=== PATIENT | male | born 1950 | race Caucasian/White ===

== ENCOUNTER 2021-07-12 16:03 | Emergency (ER) | payer OTHER, SELFPAY ==
[2021-07-12 16:05] VITALS: BP 125/81; PULSE 71; RESP 16; TEMP 36.3; O2SAT 93; BMI 31.7
--- NOTE | 2021-07-12 16:27 | EDS_ITS ---
HPI History of Present Illness Chief Complaint: General Illness Detail of Chief Complaint: Requesting replacement of his PEG tube Informant: patient Narrative Narrative: Patient presents to the emergency department stating that he had his PEG tube replaced today at the [facility] in [place]. Patient states that they had to cut the distal portion of the PEG tube and apply a adapter so that his feeding tube would fit the PEG tube. The PEG tube then easily apparently slid out once he got home. Patient denies any trauma to the area. He denies any other complaints. Patient has history of throat cancer. Patient has tracheostomy. Prior similar symptoms: Yes [facility] Medical History (Updated 07/12/21 @ 16:18 by Chanell Chirinos) Throat cancer Tracheostomy care Allergy/AdvReac Type Severity Reaction Status Date / Time No Known Allergies Allergy Verified 07/12/21 16:05 Social History Smoking Status: Former smoker ROS ROS ED ROS Narrative Requesting PEG tube replacement Constitutional Constitutional ED: Reports systems reviewed and no addt'l complaints, except as documented; Denies body ache(s), change in weight or chills Eyes Eyes: Denies acute decrease in peripheral vision, change in vision, double vision or loss of vision ENT ENT ED: Reports none; Denies ear pain, lip swelling, loss taste/smell, neck pain, otalgia or sore throat Cardiovascular Cardiovascular: Reports none; Denies abdominal pain, chest pain with activity, leg edema, lightheadedness, palpitations, rapid heart rate or syncope Respiratory/Chest Respiratory/Chest: Reports none; Denies change in mental status, dry cough, dyspnea, hemoptysis, shortness of breath at rest or shortness of breath with exertion Gastrointestinal Gastrointestinal: Reports none; Denies abdominal pain, change in stool character, diarrhea, hematemesis, hematochezia, melena, rectal bleeding or vomiting Genitourinary Genitourinary ED: Reports none; Denies abdominal discomfort, anuria, dysuria, genital pain or polyuria Musculoskeletal Musculoskeletal: Reports none; Denies arthralgias, back pain, difficulty walking, extremity pain, muscle weakness or myalgias Integumentary Reports none; Denies abscess or rash Neurologic Neurologic: Reports none; Denies abnormal gait, confusion, focal weakness, frequent falls, headache(s), loss of vision, numbness, paresthesias, radicular pain, vertigo or weakness Psychiatric Psychiatric: Reports systems reviewed and no addt'l complaints, except as documented and none; Denies behavioral changes, confusion, difficulty concentrating, hallucinations, suicidal ideation, tactile hallucinations or visual hallucinations Endocrine Endocrinology: Denies none, cold intolerance, excessive sweating, fatigue or heat intolerance Hematologic/Lymphatic Hematologic/Lymphatic: Reports none; Denies anemia, easy bleeding or easy bruising Allergic/Immunologic Allergic/Immunologic ED: Denies as per HPI, none, lip swelling, mouth swelling, throat swelling, tongue swelling or hives EXAM Physical Exam Const Vital Signs: 07/12/21 16:05 07/12/21 16:16 Temperature 97.3 F L Temperature Source Temporal Pulse Rate 71 Respiratory Rate 16 Respiratory Effort Normal Non-Labored Blood Pressure 125/81 H Blood Pressure Mean 95 Pulse Ox 93 Oxygen Delivery Method Room Air Positive well nourished and well developed General Appearance ED: well developed and NAD HEENT Reports TM's clear and moist mucous membranes normocephalic and atraumatic; Negative for trauma or tenderness Tympanic Membrane ED: Yes TM's clear Eyes PERRL and EOMs intact bilaterally General Eye ED: Negative for pale conjunctiva or scleral icterus Neck no lymphadenopathy, supple and no JVD General: Negative for tenderness Chest Wall inspection of chest normal and palpation of chest normal Chest: Negative for tenderness Resp normal respiratory effort and clear to auscultation bilaterally Effort and Inspection: Negative for respiratory distress or pain with movement Auscultation: Negative for rhonchi, wheezes or diminished lung sounds Cardio regular rate, regular rhythm, S1 normal heart sound, S2 normal heart sound and no murmurs Peripheral Pulses: pulses 2+ throughout GI normal to inspection, nondistended, normoactive bowel sounds, soft to palpation, non-tender, non-distended and no masses GI Narrative: Patient has the old PEG tube in the fistulous tract however it easily slides out. There is no balloon noted and when I attempted to place water into the old balloon port the balloon did not inflate. We used our own 28 Urdu balloon tip PEG tube and was easily inserted. I then inserted the old port portion into the new port which is slightly smaller and then we taped it in place so that he can still utilize it. [facility] be [facility] with the appropriate distal piece. Back/Spine no CVA tenderness and no thoracic nor lumbar tenderness Extremity normal to inspection General Extremety ED: Negative for edema General Extremity: Negative for edema Neuro oriented x3, CN's II-XII intact bilaterally, no sensory deficits noted and gait normal Sensorium / Orientation: awake, alert, oriented to person, oriented to place and oriented to time Motor Exam: strength 5/5 throughout and strength abnormal Psych mental status grossly normal Skin no rashes or lesions noted and no wounds MDM MDM MDM Narrative Medical decision making narrative: After PEG tube was replaced I did obtain a KUB with Gastrografin study to document placement. We did have return of gastric content after placement. Radiography Diagnostic Testing: Clinical Impression(s) from Imaging Studies KUB X-Ray 07/12/21 16:40 IMPRESSION: PEG tube in the body of stomach. There is no leakage of contrast or evidence of reflux. Electronically Signed: Evan Ortega DO at 17:19 EST Reading Location ID and State: [address] [place] [address] Tel [phone], Service support , 1 view KUB obtained interpreted by myself as PEG tube within the stomach with no evidence of extravasation. Radiology in agreement. Discharge Plan Triage Chief Complaint: General Illness ED Provider: Francisco Alcazar Dx/Rx/DC Orders Clinical Impression: S/P percutaneous endoscopic gastrostomy (PEG) tube placement Instructions: ED Feeding Tube Insertion [facility] [[facility] Provider[facility] - Activity Restrictions/Additional Instructions: [facility] as needed Disposition Disposition: Home, Self Care
--- NOTE | 2021-07-12 16:40 | RAD_ITS ---
STUDY: X-RAY - ABDOMEN/PELVIS REASON FOR EXAM: Male, 71 years old. PEG tube placement. TECHNIQUE: Single AP view of the abdomen / pelvis was performed following the injection of GASTROGRAFIN through the indwelling PEG tube.. COMPARISON: 03/11/2012. FINDINGS: There is a PEG tube with its tip in the body of the stomach. Contrast is seen within the body of the stomach and first portion of the duodenum. There is no leakage of contrast. There is no evidence of reflux. There is an unremarkable bowel gas pattern. Oral contrast is seen throughout the colon There is no demonstrated free abdominal air. The visualized liver, spleen and kidneys are grossly normal in size and morphology. Normal soft tissue structures. Normal visualized osseous structures. RAD/Abdomen Single View (Portable) IMPRESSION: PEG tube in the body of stomach. There is no leakage of contrast or evidence of reflux. Electronically Signed: Evan Ortega DO at 17:19 EST ,
== END 2021-07-12 23:59 | disposition home or self-care (01) ==
PROVIDERS: Emergency Provider Emergency Medicine; Visit Provider Emergency Medicine
DX: Z43.1 Encounter for attention to gastrostomy (principal); Z93.0 Tracheostomy status; Z87.891 Personal history of nicotine dependence; Z85.818 Personal history of malignant neoplasm of other sites of lip, oral cavity, and pharynx
CPT/HCPCS: 74018; 99282

== ENCOUNTER 2022-09-17 15:33 | Emergency (ER) | payer OTHER, SELFPAY ==
[2022-09-17] VITALS (9 sets, daily range): BP systolic 132–159; BP diastolic 74–87; PULSE 72–110; RESP 15–23; TEMP 36.8–37.1; O2SAT 93–100; BMI 30.7
--- NOTE | 2022-09-17 15:54 | EDS_ITS ---
HPI HPI - GI History of Present Illness Chief Complaint: Shortness of Breath Narrative Narrative: 72-year-old male presenting with initial complaint of abdominal pain. He states it was an acute onset abdominal pain and he points to his epigastrium and then moved his head all over his stomach. Patient does not speak well but is able to tell me that his stomach is hurting for 5 hours. He states he started hurting after tube feed. He indicates he has not had a fever, he has nausea and vomiting. No diarrhea. He states he has been having bowel movements. Patient does have history of PEG tube placement distantly. He has not had any problems with that. Patient does state that he is short of breath but denies chest pain. I did discuss this with him because the triage note states he is having chest pain. He indicates that he is not having chest pain. But he does point to his epigastrium and all over his abdomen. He does admit to being short of breath however. He does sound like he is wheezing audibly to standing next to him. 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 He is not on any chemotherapy currently. [facility] Medical History Throat cancer Tracheostomy care Allergy/AdvReac Type Severity Reaction Status Date / Time No Known Allergies Allergy Verified 07/12/21 16:05 Social History Smoking Status: Former smoker ROS ROS ED Constitutional Constitutional ED: Denies chills or fever(s) ENT ENT ED: Denies rhinorrhea or sore throat Cardiovascular Cardiovascular: Denies chest pain Respiratory/Chest Respiratory/Chest: Reports cough and dyspnea Gastrointestinal Gastrointestinal: Reports abdominal pain, nausea and vomiting Genitourinary Genitourinary ED: Denies dysuria or hematuria Musculoskeletal Musculoskeletal: Denies arthralgias Integumentary Denies abscess or Abrasions Neurologic Neurologic: Denies headache(s) or paresthesias Psychiatric Psychiatric: Denies anxiety or depression EXAM Physical Exam Const Vital Signs: 09/17/22 15:35 09/17/22 15:39 09/17/22 16:35 Temperature 98.3 F 98.3 F Temperature Source Oral Oral Pulse Rate 81 75 110 H Respiratory Rate 23 H 15 20 H Respiratory Pattern Blood Pressure 159/81 H 159/81 H 148/87 H Blood Pressure Mean 107 107 107 Pulse Ox 94 95 100 Oxygen Delivery Method Room Air Room Air Room Air Oxygen Flow Rate (L/min) 09/17/22 17:10 09/17/22 16:21 09/17/22 18:11 Temperature Temperature Source Pulse Rate 107 H 104 H 100 Respiratory Rate 16 20 H 20 H Respiratory Pattern Normal Blood Pressure Blood Pressure Mean Pulse Ox 97 96 Oxygen Delivery Method Room Air Oxygen Flow Rate (L/min) 6 09/17/22 21:34 09/17/22 21:34 Temperature 98.8 F Temperature Source Temporal Pulse Rate 75 Respiratory Rate 15 Respiratory Pattern Blood Pressure 132/74 H Blood Pressure Mean 93 Pulse Ox 93 95 Oxygen Delivery Method Oxygen Flow Rate (L/min) Positive well nourished General Appearance ED: NAD HEENT Reports moist mucous membranes normocephalic Eyes PERRL and EOMs intact bilaterally General Eye ED: Negative for pale conjunctiva or scleral icterus Resp normal respiratory effort Auscultation: Negative for rales, rhonchi or wheezes Cardio regular rate and regular rhythm Neuro CN's II-XII intact bilaterally Psych mental status grossly normal Skin no wounds MDM MDM MDM Narrative Medical decision making narrative: Presented with epigastric pain also complaining of dyspnea. He does deny chest pain although he is pointing to his epigastrium. Differential includes but is not limited to ACS, PE, aortic dissection, pneumonia, Boerhaave's, pneumothorax, muscle strain, costochondritis, GERD, gastritis, peptic ulcer disease, acute cholecystitis, acute cholelithiasis, appendicitis, diverticulitis, pancreatitis, small bowel obstruction, perforated bowel, viral etiology, food poisoning. Jurgen giordano given IV fluids, morphine, Zofran. He was a little wheezy on exam he is also given breathing treatments and Solu-Medrol. Chest x-ray was obtained and on my interpretation shows bilateral pneumonia. High-sensitivity troponin 12. EKG on my interpretation shows sinus tachycardia at 101 bpm without sign of ischemic change. Right bundle branch block pattern noted. CBC shows no leukocytosis his white blood count was 10.3. Hemoglobin stable at 12.8. Platelets low at 134 and bili comparison to this is from 2011. Creatinine slightly elevated at 1.32. Again the only comparison to this is 2011 when it was just slightly lower than this. Patient was unable to tell me if he has had history of gallbladder surgery. Does not have a jorge Anderson sign but he does have epigastric pain. His LFTs are abnormal today and his bilirubin is 1.60, AST 115, ALT 115, alkaline phosphatase 138, lipase 525. CT of the abdomen pelvis was obtained and shows a 5.7 mm common bile duct stone with a dilated common bile duct at 13 mm. I did follow this with an ultrasound which was pericholecystic fluid but no jorge Anderson sign on exam. It does show that the common bile duct is 12.8 mm on this image. The CT does also identify bilateral pneumonia. Patient covered with broad-spectrum antibiotics and given vancomycin and Zosyn which would cover for pneumonia, which I suspect is aspiration most likely. Would also cover for his gallbladder. Discussed with Dr. Reagan who is on-call for general surgery. He did try to arrange surgery by talking Dr. Benavidez, anesthesia, ENT due to the patient's history of tracheostomy and ultimately was deemed at the procedure would be too difficult at this facility and he would need a tertiary facility with more backup. I did discuss this with [facility] and spoke with a Dr. Toledo who stated that he would accept the patient on the waiting list and it would be 3 to 4 days. I then spoke with a Dr. Florence at [facility]. He excepted the transfer ER to ER. I did call the patient's to obtain telephone consent. This was confirmed with 2 other nurses. She is the POA. Patient remained medically stable. He is pending transfer. He will be signed out to incoming ED physician for monitoring until transfer. Impression: 1. Bilateral pneumonia 2. Choledocholithiasis 3. Cholecystitis Lab Data Attestation: I reviewed the patient's lab results. Labs: Laboratory Results - last 24 hr 09/17/22 09/17/22 09/17/22 16:13 16:13 17:55 WBC 10.3 RBC 3.84 L Hgb 12.8 L Hct 36.4 L MCV 94.8 H MCH 33.3 H MCHC 35.2 RDW Std Deviation 45.2 H RDW Coeff of Edwin 13.1 Plt Count 134 L MPV 9.5 Immature Gran % (Auto) 0.400 Neut % (Auto) 88.5 H Lymph % (Auto) 6.3 L [place] % (Auto) 4.1 Eos % (Auto) 0.4 Baso % (Auto) 0.3 Absolute Neuts (auto) 9.2 H Absolute Lymphs (auto) 0.65 L Nucleated RBC % 0 Sodium 133 L Potassium 3.8 Chloride 97 L Carbon Dioxide 30.0 Anion Gap 6 BUN 26 H Creatinine 1.32 H Estim Creat Clear Calc 50.59 Est GFR (MDRD) Af Amer 68 Est GFR (MDRD) Non-Af 57 L BUN/Creatinine Ratio 19.7 Glucose 115 H Calcium 9.6 Total Bilirubin 1.60 H AST 115 H ALT 115 H Alkaline Phosphatase 138 H Troponin I High Sens 12 Total Protein 8.3 H Albumin 3.6 Globulin 4.7 H Albumin/Globulin Ratio 0.8 L Lipase 525 H Ethyl Alcohol < 3.0 Radiography Diagnostic Testing: Clinical Impression(s) from Imaging Studies Abdomen/Pelvis CT 09/17/22 17:29 IMPRESSION: (NOT LISTED IN ORDER OF SIGNIFICANCE) There is dilation of the common bile duct. A 5.7mm common bile duct stone is seen. The CBD diameter is 13 mm. Bilateral pneumonia. Other findings as above. Electronically Signed: Juan Ramon Mascorro MD at 18:36 EDT , Gallbladder Ultrasound 09/17/22 18:15 IMPRESSION: Dilated CBD. There is biliary sludge dependent within the gallbladder vs small gallstones. There is pericholecystic fluid. Electronically Signed: Juan Ramon Mascorro MD at 19:29 EDT , Chest X-Ray 09/17/22 19:10 IMPRESSION: Bilateral pneumonia. Electronically Signed: Juan Ramon Mascorro MD at 19:26 EDT , Discharge Plan Triage Chief Complaint: Shortness of Breath ED Provider: Bear Horner Dx/Rx/DC Orders [facility] [facility] [[facility] Provider] -
[2022-09-17 16:20] LABS: Absolute Lymphocyte Count 0.65 X10^3/uL (0.83-4.51); Absolute Neutrophil Count 9.2 X10^3/uL (2.0-7.7); Basophil# 0.03 X10^3/uL; Basophil% 0.3 % (0-1); Eosinophil# 0.04 X10^3/uL; Eosinophils% 0.4 % (0-5); Hematocrit 36.4 % (40-54); Hemoglobin 12.8 g/dL (13.0-16.5); Lymphocyte # 0.65 X10^3/ul (0.83-4.51); Lymphocyte % 6.3 % (19-41); Mean Corp Hgb Conc 35.2 g/dL (32-36); Mean Corpuscular Hgb 33.3 pg (27.0-32.0); Mean Corpuscular Volume 94.8 fL (80-94); Mean Platelet Vol. 9.5 fl (6.2-12.0); Monocyte# 0.42 X10^3/uL; Monocyte% 4.1 % (0-10); NRBC Flagged by Analyzer 0 % (0-5); Neutrophil # 9.16 X10^3/uL (2.7-7.7); Neutrophil % 88.5 % (47-70); Platelet Count 134 K/mm3 (150-450); RBC Distribution Width CV 13.1 % (11.6-14.6); RBC Distribution Width SD 45.2 fl (35.1-43.9); Red Blood Count 3.84 M/mm3 (4.6-6.2); White Blood Count 10.3 K/mm3 (4.4-11.0)
[2022-09-17] MEDS: Albuterol 2.5 MG/3 ML VIAL.NEB. INHALATION (16:21)
[2022-09-17] MEDS: Ipratropium/Albuterol Sulfate 3 ML AMPUL.NEB INHALATION (16:22)
[2022-09-17] MEDS: MethylPREDNISolone 125 MG/2 ML Vial IV (16:33)
[2022-09-17] MEDS: Morphine 4 MG/ML Syringe IV (16:33)
[2022-09-17] MEDS: Ondansetron 4 MG/2 ML Vial IV (16:33)
[2022-09-17 16:39] LABS: ALB/GLOB Ratio 0.8 RATIO (0.9-2.4); AST(SGOT) 115 U/L (15-37); Alanine Aminotransfer ALT/SGPT 115 U/L (16-61); Albumin, Serum 3.6 g/dL (3.2-5.0); Alkaline Phosphatase 138 U/L (45-117); Anion Gap 6 (5-15); BUN 26 mg/dL (7-18); BUN/Creat Ratio 19.7 RATIO (10-20); Calcium,Total 9.6 mg/dL (8.5-10.1); Chloride 97 mmol/L (98-107); Creatinine, Serum 1.32 mg/dL (0.70-1.30); EST Glomerular Filtration Rate 57 mL/min (>60); Est Glom Filt Rate - Afr Amer 68 mL/min (>60); Estimated Creatinine Clearance 50.59 ml/min; Globulin 4.7 g/dL (2.2-4.2); Glucose 115 mg/dL (74-106); Lipase 525 U/L (73-393); Potassium 3.8 mmol/L (3.5-5.1); Protein, Total 8.3 g/dL (6.4-8.2); Sodium Level 133 mmol/L (136-145); Troponin-I HS 12 pg/mL (3.0-78.0)
--- NOTE | 2022-09-17 17:29 | CT_ITS ---
STUDY: CT Abdomen And Pelvis W/ Contrast Injection 09/17/2022 6:33 PM REASON FOR EXAM: Male, 72 years old. Abdominal pain abdominal pain Individualized dose optimization techniques were used for this CT. COMPARISON: None. TECHNIQUE: CT Abdomen And Pelvis W/ Contrast Injection IV 100mL [id number] FINDINGS: There are atherosclerotic calcifications of visualized coronary arteries. There is bilateral pneumonia. There is intrahepatic ductal dilation. Distended gallbladder. There is dilation of the common bile duct. A 5.7mm common bile duct stone is seen. The CBD diameter is 13 mm. Normal spleen. Normal pancreas. Normal bilateral adrenal glands. No acute findings of the right kidney. No acute findings of the left kidney. There is a PEG tube in place. Normal small intestine. Stool throughout the colon. There is non-visualization of the appendix. There are calcifications of the abdominal aorta. This is consistent for atherosclerotic disease. There is NO abdominal aortic aneurysm. Vascular workup can be obtained based on clinical correlation. Normal inferior vena cava. Subcentimeter mesenteric lymph nodes. Normal urinary bladder. Normal abdominal wall. There are diffuse degenerative changes of the visualized lumbar spine. Degenerative findings of the hips. There is bilateral neural foraminal stenosis at L4-5 and L5-S1. CT/Abdomen/Pelvis W IV Cont ONLY IMPRESSION: (NOT LISTED IN ORDER OF SIGNIFICANCE) There is dilation of the common bile duct. A 5.7mm common bile duct stone is seen. The CBD diameter is 13 mm. Bilateral pneumonia. Other findings as above. Electronically Signed: Juan Ramon Mascorro MD at 18:36 EDT ,
--- NOTE | 2022-09-17 18:15 | US_ITS ---
STUDY: ABDOMINAL ULTRASOUND - RIGHT UPPER QUADRANT REASON FOR VISIT: Male, 72 years old. ABDOMEN PAIN abdominal pain TECHNIQUE: Ultrasound evaluation of the right upper quadrant was performed with real-time and static maza-scale imaging. TECHNICAL QUALITY: Adequate. COMPARISON: ct of the same day FINDINGS: Liver: There is a heterogeneous echogenicity of the liver. The bile ducts are within normal limits. There is hepatic color flow. The direction of portal flow is hepatopetal. There is no demonstrated mass lesion. Gallbladder: There is a markedly distended gallbladder. The gallbladder wall measures 2.1 mm. There is a negative sonographic Anderson''s sign. There is pericholecystic fluid. There is biliary sludge dependent within the gallbladder vs small gallstones. Possible tumefactive sludge in the GB lumen giving a mass like appearance. Common Bile Duct (C.B.D.): The common bile duct measures ( in mm): 12.8 Pancreas: It is not visualized. There is too much overlying bowel gas. Right Kidney: Normal size of the right kidney. The right kidney measures 10.2 cm. . Normal renal cortex. There is no demonstrated renal mass or cyst. There is no right hydronephrosis. Aorta: It is not visualized. There is too much overlying bowel gas. . US/Gallbladder IMPRESSION: Dilated CBD. There is biliary sludge dependent within the gallbladder vs small gallstones. There is pericholecystic fluid. Electronically Signed: Juan Ramon Mascorro MD at 19:29 EDT ,
[2022-09-17 18:47] LABS: Alcohol, Blood (Medical)-Serum < 3.0 mg/dL
--- NOTE | 2022-09-17 19:10 | RAD_ITS ---
STUDY: XR Chest 1 View 09/17/2022 7:06 PM REASON FOR EXAM: Male, 72 years old. CHEST PAIN dyspnea COMPARISON: None TECHNIQUE: XR Chest 1 View FINDINGS: There is no demonstrated pleural abnormality. There is bilateral infiltrate / atelectasis. Normal heart size. Normal mediastinum. Normal lauren. Prominent appearing increased interstitial lung markings. Normal visualized pulmonary arteries. There is atherosclerotic calcification of the aortic arch with tortuosity. There are diffuse degenerative changes of the visualized thoracic spine. There is degenerative osteoarthritis of the bilateral shoulders. There is no demonstrated abnormality of the visualized soft tissue structures of the upper abdomen. RAD/Chest 1 View (Portable) IMPRESSION: Bilateral pneumonia. Electronically Signed: Juan Ramon Mascorro MD at 19:26 EDT ,
--- NOTE | 2022-09-17 20:39 | NURSING ---
[facility] AND ONLY GOT THE TRANSFER LINES VOICEMAIL
--- NOTE | 2022-09-17 20:49 | ED.RN ---
and patient updated with progress. is going to head home and aware we will transfer if bed at [facility] OR may stay on the floor here tonight if await bed there. Will call to update her as needed. No further needs at this time and call light on L bed rail.
[2022-09-18 00:02] VITALS: O2SAT 99
== END 2022-09-18 03:13 | disposition home or self-care (01) ==
PROVIDERS: Emergency Provider Student in an Organized Health Care Education/Training Program; Visit Provider Student in an Organized Health Care Education/Training Program
DX: J18.9 Pneumonia, unspecified organism (principal); Z93.0 Tracheostomy status; Z93.1 Gastrostomy status; K80.40 Calculus of bile duct with cholecystitis, unspecified, without obstruction; Z87.891 Personal history of nicotine dependence; Z85.89 Personal history of malignant neoplasm of other organs and systems
CPT/HCPCS: 71045; 74177; 76705; 80053; 82077; 83690; 84484; 85025; 93005; 94640; 96365; 96366; 96367; 96375; 99285; J7040; Q9967; A4216; J2405